=== PATIENT | male | born 1995 | race Caucasian/White ===

== ENCOUNTER 2024-06-09 10:03 | Emergency (ER) | payer MEDICAID, OTHER ==
[~2024-06-09] VITALS: Ht 165.1 cm; Wt 91.0 kg
[2024-06-09 10:12] VITALS: BP 127/77; PULSE 71; RESP 18; TEMP 98.1; O2SAT 96
[2024-06-09] MEDS ORDERED: OFLO5DRO4 RIGHT EAR (11:05)
== END 2024-06-09 11:46 | disposition home or self-care (01) ==
LOC: ER 10:10
DX: H61.21 Impacted cerumen, right ear (principal)
CPT/HCPCS: 99283